=== PATIENT | female | born 1960 | race Caucasian/White ===

== ENCOUNTER 2016-11-24 07:18 | Emergency (ER) | payer OTHER ==
[~2016-11-24] VITALS: Ht 154.9 cm; Wt 88.6 kg
[~2016-11-24 07:18] MED LIST: CARVEDILOL6.25 M1 PO; CENTRUM1 TAB PO; PRILOSEC OTC20 M1 PO; SIMVASTATIN20 M1 PO; XANAX0.5 MG PO; [UNRECOGNIZED DRUG - OTHER] PO
[2016-11-24 08:21] VITALS: BP 179/106
== END 2016-11-24 08:21 | disposition home or self-care (01) ==
LOC: ED 07:18
DX: M19.071 Primary osteoarthritis, right ankle and foot (principal)
CPT/HCPCS: Q0092

== ENCOUNTER 2017-03-02 06:33 | Emergency (ER) | payer OTHER ==
[2017-03-02 09:00] VITALS: BP 147/99
== END 2017-03-02 09:00 | disposition home or self-care (01) ==
LOC: ED 06:33
DX: F41.9 Anxiety disorder, unspecified (principal); F13.29 Sedative, hypnotic or anxiolytic dependence with unspecified sedative, hypnotic or anxiolytic-induced disorder; F99 Mental disorder, not otherwise specified; Z88.5 Allergy status to narcotic agent; Z79.899 Other long term (current) drug therapy

== ENCOUNTER 2017-08-19 14:59 | Emergency (ER) | payer OTHER ==
[~2017-08-19] VITALS: Ht 157.5 cm; Wt 87.7 kg
[2017-08-19 15:07] VITALS: Ht 157.5 cm; Wt 87.7 kg
[2017-08-19 16:51] VITALS: BP 113/73
== END 2017-08-19 16:51 | disposition home or self-care (01) ==
LOC: ED 14:59
DX: B34.9 Viral infection, unspecified (principal); E78.00 Pure hypercholesterolemia, unspecified; Z88.5 Allergy status to narcotic agent
CPT/HCPCS: J1885; Q0162

== ENCOUNTER 2018-04-02 10:30 | Emergency (ER) | payer OTHER ==
[~2018-04-02] VITALS: Ht 160 cm; Wt 89.8 kg
[2018-04-02 10:35] VITALS: Ht 160 cm; Wt 89.8 kg
[2018-04-02 11:58] VITALS: BP 159/90
== END 2018-04-02 11:58 | disposition home or self-care (01) ==
LOC: ED 10:30
DX: F41.9 Anxiety disorder, unspecified (principal); E78.00 Pure hypercholesterolemia, unspecified; Z90.710 Acquired absence of both cervix and uterus
CPT/HCPCS: Q0162

== ENCOUNTER 2020-05-17 14:14 | Emergency (ER) | payer OTHER ==
[~2020-05-17] VITALS: Ht 154.9 cm; Wt 88.5 kg
[2020-05-17 14:28] VITALS: Ht 154.9 cm; Wt 88.5 kg
[2020-05-17 15:38] LABS: BASOPHIL % 1.4 % (0-2); PLATELET COUNT 238 x10^3mcL (130-400); RED CELL DISTRIBUTION WIDTH 12.7 % (11.5-14.5)
[2020-05-17 15:45] LABS: CALCIUM 8.7 mg/dL (8.5-10.1); CARBON DIOXIDE 27.4 mmol/L (21-32); CHLORIDE SERUM 100 mmol/L (98-107); CREATININE SERUM 0.8 mg/dL (0.6-1.0); GFR1 > 60 mL/min; GLUCOSE SERUM 105 mg/dL (74-106); POTASSIUM SERUM 4.4 mmol/L (3.5-5.1); SODIUM SERUM 135 mmol/L (136-145)
[2020-05-17 15:46] LABS: microscopic required? NO
[2020-05-17 15:49] LABS: ALKALINE PHOSPHATASE 76 U/L (46-116); ALT/SGPT 76 U/L (14-59); AST/SGOT 53 U/L (15-37); BILIRUBIN TOTAL 0.4 mg/dL (0.20-1.00); LIPASE 126 IU/L (73-393); TOTAL PROTEIN, SERUM 7.9 g/dL (6.4-8.2)
[2020-05-17 16:23] LABS: UA SPECIFIC GRAVITY <=1.005 (1.005-1.035); urine erythrocyte NEGATIVE (NEGATIVE)
[2020-05-17 16:58] VITALS: BP 144/69
== END 2020-05-17 16:58 | disposition home or self-care (01) ==
LOC: ED 14:14
PROVIDERS: Emergency Medicine
DX: N28.1 Cyst of kidney, acquired (principal); I10 Essential (primary) hypertension; E78.5 Hyperlipidemia, unspecified; E78.00 Pure hypercholesterolemia, unspecified; Z90.710 Acquired absence of both cervix and uterus; Z88.5 Allergy status to narcotic agent
CPT/HCPCS: J1885; J2405; J7030